=== PATIENT | female | born 2000 | race Caucasian/White ===

== ENCOUNTER 2024-03-29 19:26 | Emergency (ER) | payer BC, OTHER, SELFPAY ==
[2024-03-29 19:28] VITALS: BP 132/64; PULSE 94; O2SAT 94; BMI 26.6
--- NOTE | 2024-03-29 19:34 | US_ITS ---
The [address] [address] Patient Name: DEEPIKA FRANCIS MRN: [id number] date: 2000 Sex: F Assigned Patient Location: ER Current Patient Location: Accession/Order Number: [id number] Exam Date: 03/29/2024 20:30 Report Date: 03/29/2024 22:03 At the request of: KESHAWN KOHLER Procedure: US pelvis transvaginal US pelvis transvaginal HISTORY: Left lower quad/ pelvic pain COMPARISONS: None TECHNIQUE: Transvaginal scanning of the pelvis was performed. FINDINGS: UTERUS: Normal in size and echogenicity. The uterus measures 8.0 x 3.5 x 5.0 cm. MYOMETRIUM:Unremarkable. ENDOMETRIUM: The endometrium is within normal limits. The endometrium measures9.5 mm which is within normal range. RIGHT OVARY: Multiple small follicles are present in the right ovary. There is normal vascular flow. The right ovary measures 3.7 x 2.0 x 2.2 cm. LEFT OVARY: Multiple small follicles are present in the left ovary. There is normal vascular flow. The left ovary measures 3.5 x 2.1 x 2.9 cm. OTHER:There is no significant free fluid in the pelvis. US/US pelvis transvaginal IMPRESSION: Several small follicles in both ovaries. Unremarkable pelvic ultrasound. Electronically authenticated by: FARIBA DIAZ Date: 03/29/2024 22:03
--- NOTE | 2024-03-29 19:42 | ED.GENADUL1 ---
HPI HPI - General Adult General Chief complaint: Abdominal Pain Stated complaint: Abdominal Pain Time Seen by Provider: 03/29/24 19:31 Source: patient Mode of arrival: walk-in Limitations: no limitations History of Present Illness HPI narrative: Patient is a 23-year-old female who presents to the emergency department for worsening pain in the left pelvis/left lower quadrant. She states she has a history of PCOS and has had cyst rupture in the past. She was concerned because the pain seems worse today. She describes it as a stabbing pain. She has not had any fevers or chills. She reports nausea but no vomiting or diarrhea. She states she is urinating normally. No flank or back pain. She had a regular menstrual period 2 weeks ago. She has never had surgery on her abdomen, she states she had a ruptured cyst about 2 years ago that was treated conservatively. Related Data Previous Rx's ?Medication ?Instructions ?Recorded hydrocodone 5 mg-acetaminophen 325 1 tab PO Q6H PRN pain 3 days #12 03/29/24 mg tablet tabs ketorolac 10 mg tablet 10 mg PO TID PRN pain #10 tabs 03/29/24 ondansetron 4 mg disintegrating 4 mg PO Q6H PRN nausea and 03/29/24 tablet vomiting #12 tabs Allergies Allergy/AdvReac Type Severity Reaction Status Date / Time shellfish derived AdvReac Intermediate Difficulty Verified 03/29/24 19:34 Breathing Opioid HPI Opioid Management Most Recent Opioid Data: No Data to Display Review of Systems ROS Constitutional Denies: fever or chills Ears, nose, mouth, and throat Denies: throat pain or nasal congestion Respiratory Denies: shortness of breath Gastrointestinal Reports: abdominal pain and nausea; Denies: vomiting or diarrhea Genitourinary Reports: pelvic pain; Denies: painful urination Musculoskeletal Denies: back pain Integumentary/Breast Denies: rash Neurological Denies: numbness in extremities or weakness in extremities Hematologic/Lymphatic Denies: easy bruising or easy bleeding PFSH PFSH Social History Little interest or pleasure in doing things: not at all Feeling down, depressed, or hopeless: not at all Exam Narrative Exam Narrative: Gen.: Awake, alert, in no distress Head: Normocephalic, atraumatic ENT: Moist mucous membranes Respiratory: No respiratory distress Gastrointestinal: Abdomen is soft, nondistended and mildly tender in the left lower quadrant with no guarding or rebound. No pain out of proportion on exam Extremities: Moves extremities equally Psych: Normal mood and affect Neuro: No focal neuro deficit Skin: Warm, dry, intact Constitutional Vital Signs, click to edit/add: Last Vital Signs Pulse 94 H 03/29/24 19:28 Resp 18 03/29/24 19:28 BP 132/64 03/29/24 19:28 Pulse Ox 94 L 03/29/24 19:28 Course Vital Signs Vital signs: Vital Signs Pulse Rate 94 H 03/29/24 19:28 Respiratory Rate 18 03/29/24 19:28 Blood Pressure 132/64 03/29/24 19:28 Pulse Oximetry 94 L 03/29/24 19:28 Pulse Rate 94 H 03/29/24 19:28 Respiratory Rate 18 03/29/24 19:28 Blood Pressure 132/64 03/29/24 19:28 Pulse Oximetry 94 L 03/29/24 19:28 Medical Decision Making MDM Narrative Medical decision making narrative: Patient is hemodynamically stable, abdomen is soft and benign. Symptoms have been present for 2 weeks with recent worsening pain. Ultrasound shows no evidence of torsion, minimal free fluid noted in the cul-de-sac. Urine specimen is unremarkable and test is negative. Patient states she is essentially pain-free on reevaluation. Discussed obtaining a CT scan as the ultrasound was unremarkable, patient would like to defer this at this time and go home with outpatient management. She understands if she has any fevers, vomiting or worsening of pain she should return to the ER for evaluation, otherwise she can follow-up with her PCP or [employer] PROC[employer]OR. She is resting comfortably on reevaluation. SUPERVISED APC VISIT, PHYSICIAN ATTESTATION: Based on the medical record the care appears appropriate. ? Medical Records Medical records reviewed: Yes I reviewed the patient's medical records Lab Data Lab results reviewed: Yes I reviewed the patient's lab results Labs: Lab Results 03/29/24 Range/Units 19:35 Urine Color Lt. yellow (YELLOW) Urine Clarity Clear (CLEAR) Urine pH 6.5 (5.0-9.0) Ur Specific Seneca <=1.005 A (1.005-1.025) Urine Protein Negative (NEG/TRACE) mg/dL Urine Glucose (UA) Negative (NEGATIVE) mg/dL Urine Ketones Negative (NEGATIVE) mg/dL Urine Occult Blood Negative (NEGATIVE) Urine Nitrite Negative (NEGATIVE) Urine Bilirubin Negative (NEGATIVE) Urine Urobilinogen 0.2 (0.2-1.0) EU/dL Ur Leukocyte Esterase Negative (NEGATIVE) Urine HCG, Qual Negative (NEGATIVE) Imaging Data US - abdomen: Attestation: I have reviewed the pertinent imaging results. Discharge Plan Discharge Chief Complaint: Abdominal Pain Clinical Impression: Pelvic pain Patient Disposition: Home, Self-Care Time of Disposition Decision: 21:23 Condition: Good Prescriptions / Home Meds: New hydrocodone-acetaminophen 5-325 mg tablet 1 tab PO Q6H PRN (Reason: pain) 3 Days Qty: 12 0RF Rx Instructions: R10.9 ketorolac 10 mg tablet 10 mg PO TID PRN (Reason: pain) Qty: 10 0RF ondansetron 4 mg tablet,disintegrating 4 mg PO Q6H PRN (Reason: nausea and vomiting) Qty: 12 0RF Print Language: Trinidadian Instructions: Pelvic Pain (ED) Referrals: Abdulaziz Ragsdale DO [Physician] - As needed Talon Jiang MD [Primary Care Provider] - 1 week
[2024-03-29 19:53] LABS: Bilirubin Urine NEGATIVE (NEGATIVE); Blood Urine NEGATIVE (NEGATIVE); Clarity Urine CLEAR (CLEAR); Color Urine LT. YELLOW (YELLOW); Glucose Urine UA NEGATIVE (NEGATIVE); Ketones Urine NEGATIVE (NEGATIVE); Leukocyte Esterase Urine NEGATIVE (NEGATIVE); Nitrite Urine NEGATIVE (NEGATIVE); Protein Urine NEGATIVE (NEG/TRACE); Specific Gravity Urine <=1.005 (1.005-1.025); Urobilinogen Urine 0.2 EU/dL (0.2-1.0); pH Urine 6.5 (5.0-9.0)
[2024-03-29 19:55] LABS: HCG Qualitative Urine* NEGATIVE (NEGATIVE); Internal Control Within Normal Limits; Urine Microscopic Indicated NO
[2024-03-29] MEDS: OXYCODONE HCL/ACETAMINOPHEN 5MG/325MG 1 TAB PO (20:02)
[2024-03-29] MEDS: ONDANSETRON 4 MG RAPDIS TABLET SL ×2 (20:02→21:42)
[2024-03-29] MEDS: KETOROLAC TROMETHAMINE 60 MG/2 ML VIAL IM (20:03)
[2024-03-29] MEDS: KETOROLAC TROMETHAMINE 10 MG TABLET PO (21:43)
[2024-03-29] MEDS: HYDROCODONE/ACET 5-325 MG TABLET 1 TAB PO (21:43)
== END 2024-03-29 21:57 | disposition home or self-care (01) ==
PROVIDERS: Physician Assistant; Emergency Provider Internal Medicine; PCP Family Medicine
DX: R10.2 Pelvic and perineal pain (principal)
CPT/HCPCS: 76830; 81003; 84703; 96372; 99285; J1885; Q0162

== ENCOUNTER 2025-01-25 13:49 | Emergency (ER) | payer BC, OTHER, SELFPAY ==
--- OUTSIDE RECORDS SUMMARY | 2024-06-04 10:13 | XMS_ITS | Continuity of Care Document ---
Author Organization [facility] Address [address] [place] [address] Phone Care Team Providers Care Diamond Sizer Name Role Phone Seun TURNER, Regino Unavailable Unavailable Allergies, Adverse Reactions, Alerts Substance Reaction Status Criticality No Known Allergies Active No Inform ation Procedures Procedure Date Panoramic Film Limited Oral Eval Oral Hygiene Instruction Intraoral-complete Series (bw) Oral Hygiene Instruction Comp Oral Eval New/estab Patient 2023 Imm Admin Through 18 Yrs Of Age 015 HEP A VACC, PED/ADOL, 2 DOSE Imm Admin Through 18 Yrs Of Age 015 H PAPILLOMA VACC 3 DOSE IM IMMUNIZATION ADMIN HEP A VACC, PED/ADOL, 2 DOSE IMMUNIZATION ADMIN, EACH ADD H PAPILLOMA VACC 3 DOSE IM OFFICE/OUTPATIENT VISIT, EST OFFICE/OUTPATIENT VISIT, EST IMMUNE ADMIN ORAL/NASAL FLU VACCINE 4 VALENT NASAL IMMUNE ADMIN ORAL/NASAL ADDL HEP A VACC, PED/ADOL, 2 DOSE H PAPILLOMA VACC 3 DOSE IM OFFICE/OUTPATIENT VISIT, EST IMMUNIZATION ADMIN H PAPILLOMA VACC 3 DOSE IM IMMUNIZATION ADMIN, EACH ADD MENINGOCOCCAL VACCINE, IM TDAP VACCINE >7 IM Advance Directives Directive Yes / No Effective Date File Name No Information Encounters Encounter Description Practice Location Reason(s) For Visit Diagnoses Date Provider Providers Copied on Encounter [facility], [address] [place] [address], [id number], [place] tel:[phone] Dental Clinic DL (chief complaint) No Information 4 Seun Lacy. [address], [place], [id number] , [place]. tel: [phone] [facility], [address] [place] [address], [id number], [place] tel:[phone] Dental Clinic Encounter for screening for dental disorders 4 Seun Lacy. [address], [place], [id number] , [place]. tel:[phone] [facility], [address] [place] [address], [id number], [place] tel:[phone] Dental Clinic dental limited (chief complaint) Body mass index [BMI] 19.9 or less, adultEncounter for screening for dental disorders 4 Seun Lacy. [address], [place], [id number] , [place]. tel: [phone] [facility], [address] [place] [address], [id number], [place] tel:[phone] [facility] No Information 2 5 Morgan Arango. [address] [place] [address], [id number] , [place]. tel:[phone] OFFICE/OUTPAT IENT VISIT, EST [facility], [address] [place], [place], [id number], [place] tel:[phone] [facility] Influenza VaccineNeed for prophylactic vaccination and inoculation against viralhepatitis - 4 Morgan Arango. [address] [place], [place], [id number] , [place]. tel:[phone] OFFICE/OUTPAT IENT VISIT, EST [facility], [address] [place], [place], [id number], [place] tel:[phone] [facility] Need for prophylactic vaccination and inoculation against other specified single bacterial diseaseNeed for prophylactic vaccination with combined diphtheria-teta nus-pertussis (DTP) (DTaP) vaccineNeed for prophylactic vaccination and inoculation, other viral diseases 4 Morgan Arango. [address] [place], [place], [id number] , [place]. tel:[phone] Family History Family Member Type Diagnosis Age At Onset Mother Problem Alive and well Father Problem Alive and well Immunizations Vaccine Date Status Comments Hep A (ped/adol, 2 dose) administered Araceli rce: New Immunization Record HPV administered Source: New Imm unization Record Hep A (ped/adol, 2 dose) administered Araceli rce: New Immunization Record FluMist administered Source: New Imm unization Record HPV administered Note: VIS given . ; Source: New Immunization Record HPV administered Source: New Imm unization Record Tdap administered Source: New Imm unization Record MCV4 (11-55 yrs) administered Source: New Immunization Record Payers Payer name Insurance type Covered alliance party ID Elina dixon(s) [facility] [employer] [facility] [id number] Medicaid Wrap - [facility] [place] [id number] [facility] [id number] [place] [employer] Medicaid [place] [id number] Medicaid Wrap - [facility] [place] [id number] Social History Type Description Quantity Date Captured Comments Alcohol Use Details Unknown Caffeine Use Details Unknown Tobacco Use Status No Information Smoking Status No Information Sex Female Sexual Orientation Straight or heterosexual Gender Identity Female Vital Signs Date / Time: Height Weight BMI Pulse Rate Blood Pressure Temperature Respiratory Rate Body Surface Area Head Circumference Head Circ. Percentile Wt./Heath. Percentile BMI percentile Pulse Ox Inhaled Ox 2:15 PM 84 /min 118/78 mm[Hg] 97.50 F Chief Complaint And Reason For Visit From encounter dated 06/04/2024 14:13'. DL (chief complaint). Description: DL, wisdom teeth Reason For Referral Reason For Referral No Information Plan Of Treatment Date Type Action Status Goal Unhealthy drug use screening . Due on due Goal TD Vaccine. Due on due Goal PAP. Due on due Goal Influenza vaccine. Due on due Goal HPV (2nd) due Goal HPV. Due on due Goal Depression screening. Due on due Goal RLP. Due on due Goal PRAPARE ASSESSMENT. Due on due Goal Tdap due Goal Hepatitis C screening. Due o n due Goal HPV (3rd) due Goal Tdap Vaccine. Due on 2023 due Goal Tdap due Goal RLP. Due on due Goal Tdap Vaccine. Due on 2023 due Goal Hepatitis C screening. Due o n due Goal Unhealthy drug use screening . Due on due Goal HPV (2nd) due Goal HPV. Due on due Goal Depression screening. Due on due Goal HPV (3rd) due Goal PAP. Due on due Goal PRAPARE ASSESSMENT. Due on M due Goal Influenza vaccine. Due on No due Goal Dietary management education , guidance, and counseling completed Goal Depression screening. Due on due Goal HPV (2nd). Due on 4 due Goal TD Vaccine. Due on 14 due Goal HPV (1st). Due on 4 due History Of Present Illness Encounter Date Complaint History Of Prese nt Illness DL DL, wisdom teeth dental limited dental limited Functional Status Date Functional Assessmen t No Information Instructions Date Instruction Additional Infor mation Dietary management e ducation, guidance, and counseling Related to Body mass index [BMI] 19.9 or less, adult Giving encouragement to exercise Related to Body mass index [BMI] 19.9 or less, adult Assessments Type Assessment Date No Information Patient Care Teams Name Effective Dates (start - stop) Status Members No Information
[2025-01-25 13:56] VITALS: BP 126/87; PULSE 99; TEMP 37.2; O2SAT 100; BMI 18.3
--- OUTSIDE RECORDS SUMMARY | 2025-01-25 13:59 | XMS_ITS | Encounter Summary ---
Author Organization [facility] Address [address] [place] [address] Phone Care Team Providers Care Primer Inspector Name Role Phone Unavailable Primary Care Provider Unavailabl e Reason for Referral * Neurology (Routine) - Authorized Specialty Diagnoses / Procedures Referred By Contdanielle t Referred To Contact Diagnoses Syncope and collapse Tachycardia, unspecified Procedures Autonomic Testing Talon Jiang MD [address] [address] Phone: tel: fax: Referral ID Status Reason Start Date Expiration Date V isits Requested Visits Authorized [id number] Authorized 12/17/2023 12/16/2024 1 1 Encounter Details Date Type Department Care Team (Latest Contact Info) Description 12/17/2023 Transcribe Orders [facility] [address] [facility] 5th [place] [address] Talon Jiang MD [address] [id number] Syncope and collapse (Primary Dx); Tachycardia, unspecified Social History Tobacco Use Types Packs/Day Years Used Date Smoking Tobacco: Never Assessed Comments Unknown Sex and Gender Information Value Date Recorded Sex Assigned at Not on file Legal Sex Female 8:30 AM EST Gender Identity Not on file Sexual Orientation Not on file documented as of this encounter Plan of Treatment Not on file documented as of this encounter Results * Autonomic Testing (02/11/2024 5:34 PM EDT) us Talon Jiang MD NEUROLOGY ORDERABLES Final Result NEUROLOGY documented in this encounter Visit Diagnoses Diagnosis Syncope and collapse- Primary Tachycardia, unspecified documented in this encounter
--- OUTSIDE RECORDS SUMMARY | 2025-01-25 14:00 | XMS_ITS | Encounter Summary ---
Author Organization [facility] Address [address] [address] [place] [address] Phone Care Team Providers Care Concrete Bucket Hooker Name Role Phone Unavailable Primary Care Provider Unavailabl e Encounter Details Date Type Department Care Team (Late st Contact Info) Description 12/30/2022 Patient Risk Score ACO Care Management [address] [place] [address] Social History Tobacco Use Types Packs/Day Years Used Date Smoking Tobacco: Never Assessed Comments Unknown Sex and Gender Information Value Date Recorded Sex Assigned at Not on file Legal Sex Female 8:30 AM EST Gender Identity Not on file Sexual Orientation Not on file documented as of this encounter Plan of Treatment Not on file documented as of this encounter Visit Diagnoses Not on filedocumented in this encounter
--- OUTSIDE RECORDS SUMMARY | 2025-01-25 14:00 | XMS_ITS | Encounter Summary ---
Author Organization [facility] Address [address] [place] [place] [address] Care Team Providers Care Community Engagement Leader Name Role Phone Unallocated, Noms Provider Primary Care Provi ollie Elyse Cheatham [address] ATTENDANT Unavailable [phone] Sagrario Garrison MD Primary Care Provider + [phone] Encounter Details Date Type Department Care Team (Late st Contact Info) Description 04/11/2023 Clinisync Result Encounter [facility] External Department Unsolicited Elyse Cheatham, [address] ATTENDANT [address] [place] [address] Social History Tobacco Use Types Packs/Day Years Used Date Smoking Tobacco: Never Smokeless Tobacco: Never Alcohol Use Standard Drinks/Week Comments Yes 0 (1 standard drink = 0.6 oz pur e alcohol) AUDIT-C Answer Date Recorded Q1: How often do you have a drink containing alc ohol? Monthly or less 03/18/2023 Q2: How many drinks containi ng alcohol do you have on a typical day when you are drinking? 1 or 2 03/18/2023 Q3: How often do you have si x or more drinks on one occasion? Never 03/18/2023 PHQ-2 Answer Date Recorded Patient Health Questionnaire-2 Score 0 03/18/2023 Comments No Sex and Gender Information Value Date Recorded Sex Assigned at Female 12/08/2024 1:36 PM EDT Legal Sex Female 6:48 PM EDT Gender Identity Female 12/08/2024 1:36 PM EDT Sexual Orientation Straight 12/08/2024 1: 36 PM EDT documented as of this encounter Miscellaneous Notes * Result Encounter Note - Elyse Cheatham NP - 04/11/2023 2:45 PM EDT Please let pt know that her breast US was completely negative. Continue self breast exams and follow up for any changes. Thanks. documented in this encounter Plan of Treatment Not on file documented as of this encounter Procedures Procedure Name Priority Date/Time Associated Diagnosis Comments US BREAST UNILATERAL LT COMPLETE 04/11/2023 1:54 PM EDT documented in this encounter Results * US BREAST UNILATERAL LT COMPLETE (04/11/2023 1:54 PM EDT) Anatomical Region Laterality Modality Other 04/11/2023 1:54 PM EDT Narrative 04/11/2023 2:43 PM EDT Exam Date/Time: 04/11/2023 14:13 EDT Reason for Exam: BREAST LUMP Report IMPRESSION: BI-RADS CATEGORY 1: NEGATIVE. CLINICAL HISTORY: BREAST LUMP. COMMENT: An ultrasound was obtained at all clock face positions and in the central/ retroareolar region of the left breast. No mass, no cyst, nor suspicious lesion is noted in the left breast. An ultrasound was obtained at all clock face positions and in the central/ retroareolar region of the right breast. No mass, no cyst, or suspicious lesion is noted in the right breast. Ordering Provider: , FINAL REPORT Dictated: 04/11/2023 2:40 pm Yosi Rangel M.D. Signed (Electronic Signature): 04/11/2023 2:40 pm Signed by: Yosi Rangel M.D. Transcribed by: MAYA Technologist: JOVANNI, Procedure Note Radiology, Radiologist, - 04/11/2023 Exam Date/Time: 04/11/2023 14:13 EDT Reason for Exam: BREAST LUMP Report IMPRESSION: BI-RADS CATEGORY 1: NEGATIVE. CLINICAL HISTORY: BREAST LUMP. COMMENT: An ultrasound was obtained at all clock face positions and inthe central/ retroareolar region of the left breast. No mass, no cyst, nor suspiciouslesion is noted in the left breast. An ultrasound was obtained at all clock face positions and in thecentral/ retroareolar region of the right breast. No mass, no cyst, or suspiciouslesion is noted in the right breast. Ordering Provider: , FINAL REPORT Dictated: 04/11/2023 2:40 pm Yosi Rangel M.D. Signed (Electronic Signature): 04/11/2023 2:40 pm Signed by: Yosi Rangel M.D. Transcribed by: MAYA Technologist: JOVANNI, us Elyse Cheatham NP [facility] Final R esult documented in this encounter Visit Diagnoses Not on filedocumented in this encounter Care Teams Community Engagement Leader Relationship Specialty Start Date End Date Unallocated, Noms Provider, [address] [place] [address] PCP - General 12/02/22 12/07/24 Elyse Cheatham NP [address] [place] [address] PCP - [employer] 11/28/22 Sagrario Garrison MD [address] [place] [address] PCP - General Family Medicine 12/08/24 documented as of this encounter
--- OUTSIDE RECORDS SUMMARY | 2025-01-25 14:00 | XMS_ITS | Encounter Summary ---
Author Organization [facility] Address [address] [place] [address] Care Team Providers Care Hydrogen Braze Furnace Operator Name Role Phone Sagrario Garrison MD Primary Care Provider + [phone] Reason for Visit * Reason Onset Date Comments Medication Question 01/11/2025 Encounter Details Date Type Department Care Team (Late st Contact Info) Description 01/11/2025 Telephone [facility] [address] [place] [address] Ryann Jimenes RESOLUTION ANALYST [address] [place] [address] Medication Question Social History Tobacco Use Types Packs/Day Years [...] as of this encounter Miscellaneous Notes * Telephone Encounter - Gisela Munoz LPN - 01/11/2025 11:31 AM EDT Pt notified. * Telephone Encounter - Ryann Jimenes NP - 01/11/2025 11:27 AM EDT Sent flagyl 1 tablet twice a day for 7 days for her, reviewed culture * Telephone Encounter - KRIS CASTRO - 01/11/2025 11:25 AM EDT [facility] report has been sent to you * Telephone Encounter - Ryann Jimenes NP - 01/11/2025 10:56 AM EDT Did she for sure have cultures to confirm BV? I do not see their notes. Flagyl is safe during per epocrates which is what we use for everyone. Can we obtain her OV note * Telephone Encounter - Gisela Munoz LPN - 01/11/2025 10:52 AM EDT Sending to khai to advise. * Telephone Encounter - Mariel Florian - 01/11/2025 10:43 AM EDT Pt went to [facility] and she was diagnosed with BV. She was told to contact us to find out what is the best medication to take for this. Pt is 11 weeks . Her OB doctor is outof the office until and she would like to get started on something due to the color of thedischarge Is changing. Send script to [facility]. documented in this encounter Plan of Treatment Not on file documented as of this encounter Visit Diagnoses Diagnosis Bacterial vaginosis- Primary Unspecified vaginitis and vulvovaginitis documented in this encounter Care Teams Hydrogen Braze Furnace Operator Relationship Specialty Start Date End Date Sagrario Garrison MD [address] [place] [address] PCP - General Family Medicine 12/08/24 documented as of this encounter
--- OUTSIDE RECORDS SUMMARY | 2025-01-25 14:00 | XMS_ITS | Clinical Summary ---
Author Organization [facility] Address [address] [place] [address] Care Team Providers Care Title Insurance Sales Representative Name Role Phone Sagrario Garrison MD Primary Care Provider [phone] Allergies Active Allergy Reactions Criticality Noted Date Comments Shellfish-Derived Products 4 Medications metroNIDAZOLE (Flagyl) 500 MG tabletIndicatio ns:Bacterial vaginosis Take 1 tablet (500 mg) by mouth in the morning and 1 tablet (500 mg) before bedtime. Do all this for 7 days. 14 tablet 01/11/2025 01/19/20 25 Active Problems Problem Noted Date Diagnosed Date Current smoker 09/30/2022 Overview (12/02/2022): Added secondary to documentation in Social History. Added secondary to documentation in Social History. Encounters Date Type Department Care Team Description 01/11/2025 Orders Only [facility] [address] [place] [phone] Stoney James PA 01/11/2025 Telephone [facility] [address] [phone] Ryann Jimenes NP Medication Question 12/08/2024 1:20 PM EDT Office Visit [facility] [address] [place] [address] Ryann Jimenes NP Amenorrhea (Primary Dx); Difficulty concentrating 12/08/2024 Clinisync Result Encounter [facility] External Department Unsolicited Case, Ryann Bush NP 12/08/2024 Bamboo flowsheet [facility] [address] [place] [address] Case, Ryann Bush NP 12/08/2024 Travel from Last 3 Months Family History Medical History Relation Name Comments Hypertension Father Cervical cancer Maternal Grandmother Colon cancer Maternal Grandmother Hypertension Mother Breast cancer Paternal Grandmother Relation Name Status Comments Father Maternal Grandmother Mother Paternal Grandmother Social History Tobacco Use Types Packs/Day Years Used Date Smoking Tobacco: Never Smokeless Tobacco: Never Tobacco Cessation:Counseling Given: No Alcohol Use Standard Drinks/Week Comments Yes 0 [...] Orientation Straight 12/08/2024 1: 36 PM EDT Last Filed Vital Signs Vital Sign Reading Time Taken Comments Blood Pressure 110/62 12/08/2024 1:14 PM EDT Pulse 82 12/08/2024 1:14 PM EDT Temperature 36.4 C (97.6 F) 12/08/2024 1:14 PM EDT Respiratory Rate 17 12/08/2024 1:14 PM EDT Oxygen Saturation 98% 12/08/2024 1:14 PM EDT Inhaled Oxygen Concentration - - Weight 49.9 kg (110 lb) 12/08/2024 1:14 PM EDT Height 160 cm (5' 3 ) 12/08/2024 1:14 PM EDT Body Mass Index 19.49 12/08/2024 1:14 PM EDT Plan of Treatment Health Maintenance Due Date Last Done Comments Influenza Vaccine (#1) 2025 4, 06/13/2009, 05/10/2009, Additional history exists Procedures Procedure Name Priority Date/Time Associated Diagnosis Comments GARDNERELLA VAGINALIS (COMPLICATED GENITOURINARY) Routine 01/07/2025 11:23 AM EDT [facility] Routine 12/08/2024 2:39 PM EDT from Last 3 Months Results * GARDNERELLA VAGINALIS (COMPLICATED GENITOURINARY) (01/07/2025 11:23 AM EDT) us St[facility] BLOOD ORDERABLES Final Resu lt * (ABNORMAL) [facility] BHCG QUANT (12/08/2024 2:39 PM EDT) BETA HCG QNT 47,141(H) 1 - 3 mIU/mL [facility] Comment: 'F NON < 1 - 3' ' 0.2 - 1 WEEK = 5 TO 50' ' 1 - 2 WEEKS = 50 - 500' ' 2 - 3 WEEKS = 100 - 5000' ' 3 - 4 WEEKS = 500 - 61997' ' 4 - 5 WEEKS = 1000 - 27442' ' 5 - 6 WEEKS = [address] - 521032' ' 6 - 8 WEEKS = 44416 - 981533' ' 8 - 12 WEEKS = [address]20 - 169452' Blood 12/08/2024 2:39 PM EDT 12/08/2024 3:55 PM EDT Narrative [facility] - 12/08/2024 4:52 PM EDT Original Ordering Provider: RUSSELL JIMENES us Ryann Bush Case SALES TECHNICIAN [facility] Final Result [facility] from Last 3 Months Insurance [employer] Care Teams Title Insurance Sales Representative Relationship Specialty Start Date End Date Sagrario Garrison MD [address] [place] [address] PCP - General Family Medicine 12/08/24
--- OUTSIDE RECORDS SUMMARY | 2025-01-25 14:00 | XMS_ITS | Encounter Summary ---
Author Organization [facility] Address [address] [place] [place] [address] Phone Care Team Providers Care School Teacher Name Role Phone Unavailable Primary Care Provider Unavailabl e Encounter Details Date Type Department Care Team (Late st Contact Info) Description 03/02/2023 Patient Risk Score ACO Care Management [address] [place] [address] Social History Tobacco Use Types [...]
--- OUTSIDE RECORDS SUMMARY | 2025-01-25 14:00 | XMS_ITS | Clinical Summary ---
Author Organization [facility] Address [address] [place] [address] Phone Care Team Providers Care Women'S Studies Professor Name Role Phone Unavailable Primary Care Provider Unavailabl e Social History Tobacco Use Types Packs/Day Years Used Date Smoking Tobacco: Never Assessed Comments Unknown Sex and Gender Information Value Date Recorded Sex Assigned at Not on file Legal Sex Female 8:30 AM EST Gender Identity Not on file Sexual Orientation Not on file Plan of Treatment Health Maintenance Due Date Last Done Comments Lipid Panel 2001 IPV Vaccines (2 of 3 - 4-dos e series) 07/11/2003 06/13/2003 Meningococcal B Vaccine (1 o f 2 - Standard) 2017 Hepatitis C Screening 12/05/2019 Cervical Cancer Screening 2022 HPV/Cotest 2022 Pap Smear 2022 DTaP/Tdap/Td Vaccines (4 - T d or Tdap) 02/24/2024 02/23/2014, 05/04/2002, 02/09/2002 COVID-19 Vaccine (2 - 2023-2 5 season) 2024 12/11/2020 Yearly Adult Physical 03/19/2024 03/18/2023 Influenza Vaccine (#1) 2025 06/13/2003 Zoster Vaccines (1 of 2) 12/05/2051 007, 05/02/2003 Hepatitis B Vaccines Completed 09/03/2002, 02/09/2002, 2001 MMR Vaccines Completed 01/19/2007, 05/02/2003 Varicella Vaccines Completed 01/19/2007, 05/02/2003 Meningococcal Vaccine Aged Out 02/23/2014 No justin mera eligible based on patient's age to complete this topic HPV Vaccines Completed 11/29/2014, 05/03/2014, 02/23/2014 Hepatitis A Vaccines Completed 11/29/2014, 05/03/2014 HIV Screening Completed 10/26/2020 HIB Vaccines Aged Out No longer eligi ble based on patient's age to complete this topic Pneumococcal Vaccine: Pediatrics and At-Risk Adult Patients Aged Out No longer eligible b ased on patient's age to complete this topic Rotavirus Vaccines Aged Out No longer eligible based on patient's age to complete this topic Insurance [facility]
--- OUTSIDE RECORDS SUMMARY | 2025-01-25 14:00 | XMS_ITS | Encounter Summary ---
Author Organization [facility] Address [address] [facility] [place] [address] Care Team Providers Care Candy Dipper Name Role Phone Sagrario Garrison MD Primary Care Provider + [phone] Encounter Details Date Type Department Care Team (Late st Contact Info) Description 01/11/2025 Orders Only [facility] Medicine [address] [place] [phone] Stoney James PA [address] [place] [id number] Social History Tobacco Use Types Packs/Day Years [...] PM EDT documented as of this encounter Plan of Treatment Not on file documented as of this encounter Procedures Procedure Name Priority Date/Time Associated Diagnosis Comments GARDNERELLA VAGINALIS (COMPLICATED GENITOURINARY) Routine 01/07/2025 11:23 AM EDT documented in this encounter Results * GARDNERELLA VAGINALIS (COMPLICATED GENITOURINARY) (01/07/2025 11:23 AM EDT) us St[facility] BLOOD ORDERABLES Final Resu lt documented in this encounter Visit Diagnoses Not on filedocumented in this encounter Care Teams Candy Dipper Relationship Specialty Start Date End Date Sagrario Garrison MD [address] [place] [address] PCP - General Family Medicine 12/08/24 documented as of this encounter
--- OUTSIDE RECORDS SUMMARY | 2025-01-25 14:00 | XMS_ITS | Encounter Summary ---
Author Organization [facility] Address [address] [facility] [place] [address] Phone Care Team Providers Care Shore Man Name Role Phone Unavailable Primary Care Provider Unavailabl e Encounter Details Date Type Department Care Team (Late st Contact Info) Description 01/30/2023 Patient Risk Score ACO Care Management [address] [place] [address] Social History Tobacco Use Types [...]
--- NOTE | 2025-01-25 14:10 | ED.GENADUL1 ---
HPI HPI - General Adult General Chief complaint: Dizziness Stated complaint: DIZZINESS, HEADACHE - 13 WEEKS PREG Time Seen by Provider: 01/25/25 14:02 Source: patient Mode of arrival: walk-in Limitations: no limitations History of Present Illness HPI narrative: 24-year-old female presents for what she believes was an episode of hypoglycemia. She was at work and was standing and she got dizzy and lightheaded and was seeing spots. She ate some food and felt a lot better. She had to leave work and they wanted her to come and get checked out. She is currently , 13 weeks. No abdominal pain or cramping or bleeding. No fever vomiting or diarrhea recently. She feels back to normal now. Related Data Home Medications ?Medication ?Instructions ?Recorded ?Confirmed No Known Home Medications 01/25/25 01/25/25 Allergies Allergy/AdvReac Type Severity Reaction Status Date / Time shellfish derived AdvReac Intermediate Difficulty Verified 03/29/24 19:34 Breathing Review of Systems ROS Narrative A ten point review of systems is negative except as noted above. PFSH PFSH Social History Little interest or pleasure in doing things: not at all Feeling down, depressed, or hopeless: not at all Exam Narrative Exam Narrative: Nurses note and vital signs reviewed and patient is not hypoxic. General: The patient appears well and in no apparent distress. Patient is resting comfortably on cart. Skin: Warm, dry, no pallor noted. There is no rash noted. Head: Normocephalic, atraumatic Eye: Normal conjunctiva, no drainage Ears, Nose, Mouth, and Throat: oral mucosa is moist. Nares patent. Cardiovascular: Regular Rate and Rhythm Respiratory: Patient is in no distress, no accessory muscle use, lungs are clear to auscultation, no wheezing, rales or rhonchi Back: non-tender GI: Soft and nontender Musculoskeletal: The patient has no evidence of calf tenderness, no pitting edema, symmetrical pulses noted bilaterally Neurological: A&O, normal speech Psychiatric: Cooperative Constitutional Vital Signs, click to edit/add: Last Vital Signs Temp 99.0 F 01/25/25 13:56 Pulse 99 H 01/25/25 13:56 Resp 18 01/25/25 13:56 BP 126/87 01/25/25 13:56 Pulse Ox 100 01/25/25 13:56 O2 Del Method Room Air 01/25/25 13:56 Course Vital Signs Vital signs: Vital Signs Temperature 99.0 F 01/25/25 13:56 Pulse Rate 99 H 01/25/25 13:56 Respiratory Rate 18 01/25/25 13:56 Blood Pressure 126/87 01/25/25 13:56 Pulse Oximetry 100 01/25/25 13:56 Oxygen Delivery Method Room Air 01/25/25 13:56 Temperature 99.0 F 01/25/25 13:56 Pulse Rate 99 H 01/25/25 13:56 Respiratory Rate 18 01/25/25 13:56 Blood Pressure 126/87 01/25/25 13:56 Pulse Oximetry 100 01/25/25 13:56 Oxygen Delivery Method Room Air 01/25/25 13:56 Medical Decision Making MDM Narrative Medical decision making narrative: The patient has no symptoms and her blood sugar is normalized and she is able to be released. Treatment diagnosis and follow-up were discussed with the patient. Differential Diagnosis Differential Diagnosis: Hypoglycemia, dehydration Lab Data Lab results reviewed: Yes I reviewed the patient's lab results Labs: Lab Results 01/25/25 Range/Units 14:14 POC Glucose 96 (74-106) mg/dL Discharge Plan Discharge Chief Complaint: Dizziness Clinical Impression: Hypoglycemia Patient Disposition: Home, Self-Care Time of Disposition Decision: 14:09 Condition: Good Mode of Transportation: Private Vehicle Prescriptions / Home Meds: No Action No Known Home Medications Print Language: Bhutanese Instructions: Non-diabetic Hypoglycemia (ED) Referrals: AGUSTO CALVIN [Primary Care Provider, Unknown] - 1 week
== END 2025-01-25 14:27 | disposition home or self-care (01) ==
PROVIDERS: Emergency Provider Emergency Medicine; PCP Nurse Practitioner Family
DX: R73.9 Hyperglycemia, unspecified (principal); R42 Dizziness and giddiness; H53.8 Other visual disturbances
CPT/HCPCS: 36415; 99282